=== PATIENT | female | born 1945 | race Caucasian/White ===

== ENCOUNTER 2016-11-27 06:23 | Day surgery (SDC) | payer MEDICARE, OTHER ==
[2016-11-22 11:01] LABS: HEMATOCRIT 36.6 % (36.0-48.0); HEMOGLOBIN 12.2 g/dL (12.0-16.0)
[2016-11-22 11:15] LABS: BUN (BLOOD UREA NITROGEN) 23 MG/DL (6-23); CALCIUM, SERUM 8.9 MG/DL (8.5-10.4); CHLORIDE, SERUM 109 MMOL/L (96-112); CO2 (CARBON DIOXIDE) 28 MMOL/L (24-34); CREATININE 1.44 MG/DL (0.55-1.02); GFR AFRICAN AMERICAN 42 ML/MIN (>=60); GFR NON AFRICAN AMERICAN 36 ML/MIN (>=60); GLUCOSE, SERUM 84 MG/DL (60-99); POTASSIUM, SERUM 4.3 MMOL/L (3.5-5.3); SODIUM, SERUM 143 MMOL/L (135-148)
--- NOTE | ~2016-11-27 | OP ---
Record Of Operation [facility] [address] [place]. [address] NAME: BRENDA CHACKO : 41 STATUS : REG [facility]#: [id number] AGE: 71 ADM/REG DATE : 11/27/16 MR#: [id number] REPORT SERV DATE: 11/27/16 DICTATED BY: KADY BORJA DATE: 11/27/16 REPORT STATUS : Draft TRANSCRIBED BY: MODEden DATE: 11/27/16 DATE OF PROCEDURE: 11/27/2016 PREOPERATIVE DIAGNOSIS: Left breast invasive ductal cancer. POSTOPERATIVE DIAGNOSIS: Left breast invasive ductal cancer. PROCEDURE: Re-excision of left breast segmentectomy margins. INDICATION FOR THE PROCEDURE: Ms. Chacko is a 71-year-old female, who has a left breast invasive ductal cancer which ends up being a T1c, N1A breast cancer. She did have a positive 12 o'clock to 1 o'clock, and 3 o'clock to 4 o'clock margin on her original pathology. This was invasive cancer margin positivity and not DCIS. The patient had met with Medical Oncology, Oncotype was surprisingly low at 12, and she does not meet criteria for adjuvant chemotherapy. We will be moving for today with re-excision of the 12 o'clock to 4 o'clock margin, essentially, we will take all of the superior deep and lateral margins. OPERATIVE FINDINGS: After appropriate consent was noted on the chart, the patient was taken to the operating room in supine position. She was placed under general anesthesia without any complications ultrasound was utilized to visualize the seroma which does stretch over the medial breast from essentially the areolar edge over to approximately 6 cm from the nipple. The left breast was prepped and draped in sterile fashion. An incision was made in the prior scar and dissection was carried down to the level of the seroma cavity. The seroma cavity was well-healed and easily visible. Dissection was carried out medially below the skin at the areolar edge, which in compasses the lateral margin. This was taken down to the level of the muscle and the seroma cavity that has already gone down to the muscle, but the seroma wall was taken all of the superior and superficial portion was taken as well. This was sent en bloc with marking sutures for permanent pathology. The wound was copiously irrigated with warm saline. Hemostasis was achieved, and local anesthetic was infiltrated in the skin and soft tissues. The incision was closed in two layers of Monocryl. The skin was cleansed and dried and Dermabond overlaid. Once the Dermabond had dried, burn fluff and a binder were placed on the patient. She was taken to recovery in stable condition. All counts were correct at the end of the case. ESTIMATED BLOOD LOSS: 10 mL. COMPLICATIONS: None. SPECIMEN: Left breast new segmentectomy margin. RENU/BRENDA Kady Borja MD Record Of Operation [address] [address] NAME: BRENDA CHACKO : 41 STATUS : REG [facility] PAT#: [id number] AGE: 71 ADM/REG DATE : 11/27/16 MR#: [id number] REPORT SERV DATE: 11/27/16 DICTATED BY: KADY BORJA DATE: 11/27/16 REPORT STATUS : Draft TRANSCRIBED BY: BRENDA DATE: 11/27/16 / [id number] CC: MD Allen Smith M.D. Mark S Womack IV, M.D. [facility] Janny Mills NP
[~2016-11-27 06:23] MED LIST: ACET500CAP PO; ASA5GR PO; BEN25 PO; CAT2 PO; FLEX PO; ISOPTIN SR240 MG PO; LEVOTHYROXIN50 MCG PO; LOPID6 PO; LOVAZA1 GM PO; PAX20 PO
[2017-01-04] MEDS ORDERED: PERCOCET 10/3251 TAB PO (08:58)
[2017-01-04] MEDS ORDERED: K500 PO (08:59)
[2017-01-04] MEDS ORDERED: AT25 PO (08:59)
== END 2016-11-27 11:14 | disposition home or self-care (01) ==
LOC: SDC 06:23
PROVIDERS: Surgery Surgical Oncology
PROC: 0HBU0ZZ Excision of Left Breast, Open Approach (ICD-10-PCS; principal; 2016-11-27 07:45)
DX: C50.812 Malignant neoplasm of overlapping sites of left female breast (principal); C50.512 Malignant neoplasm of lower-outer quadrant of left female breast; I10 Essential (primary) hypertension; E03.9 Hypothyroidism, unspecified; E78.5 Hyperlipidemia, unspecified; E78.00 Pure hypercholesterolemia, unspecified; G43.909 Migraine, unspecified, not intractable, without status migrainosus; F32.9 Major depressive disorder, single episode, unspecified; K57.92 Diverticulitis of intestine, part unspecified, without perforation or abscess without bleeding; Z88.8 Allergy status to other drugs, medicaments and biological substances; Z79.82 Long term (current) use of aspirin; Z79.899 Other long term (current) drug therapy; Z87.891 Personal history of nicotine dependence; Z90.710 Acquired absence of both cervix and uterus; Z98.890 Other specified postprocedural states
CPT/HCPCS: 80048; 85014; 85018; 88307; 88341; 88342; 93005; J0690; J2250; J2405; J3010